=== PATIENT | female | born 1955 | race Caucasian/White ===

== ENCOUNTER 2017-08-23 07:32 | Outpatient (CLI) | payer BC | END 2017-08-23 07:33 | disposition home or self-care (01) | LOC: BICULT 07:32 | PROVIDERS: ATTEND Internal Medicine Cardiovascular Disease | DX: K76.89 Other specified diseases of liver (principal) | CPT/HCPCS: 76705 ==

== ENCOUNTER 2017-09-19 07:28 | Outpatient (CLI) | payer BC ==
[2017-09-19] MEDS ORDERED: ISOVUE-370 76%-LOCM 1 ML ONE (12:50)
== END 2017-09-19 07:29 | disposition home or self-care (01) ==
LOC: BICCT 07:28
PROVIDERS: ATTEND Internal Medicine Gastroenterology
DX: R93.3 Abnormal findings on diagnostic imaging of other parts of digestive tract (principal); K76.89 Other specified diseases of liver; N20.0 Calculus of kidney
CPT/HCPCS: 74170

== ENCOUNTER 2017-12-27 14:18 | Outpatient (CLI) | payer BC | END 2017-12-27 14:19 | disposition home or self-care (01) | LOC: BICMAMMO 14:18 | PROVIDERS: ATTEND Family Medicine | DX: Z12.31 Encounter for screening mammogram for malignant neoplasm of breast (principal) | CPT/HCPCS: 77063; 77067 ==

== ENCOUNTER 2019-01-01 14:02 | Outpatient (CLI) | payer BC ==
--- NOTE | 2019-01-01 16:58 | MMO ---
Bilateral MAMMO Bilat Screen [facility]. CLINICAL HISTORY: Patient is 63 years old and is seen for screening. The patient has no family history of breast cancer. The patient has no personal history of cancer. VIEWS: The views performed were: bilateral craniocaudal with tomosynthesis and bilateral mediolateral oblique with tomosynthesis. FILMS COMPARED: The present examination has been compared to a prior imaging study performed at [facility] on 12/27/2017. This study has been interpreted with the assistance of computer-aided detection. MAMMOGRAM FINDINGS: There are scattered fibroglandular densities. There are no suspicious masses, suspicious calcifications, or new areas of architectural distortion. IMPRESSION: THERE IS NO MAMMOGRAPHIC EVIDENCE OF MALIGNANCY. A ROUTINE FOLLOW-UP MAMMOGRAM IN 1 YEAR IS RECOMMENDED. THE RESULTS OF THIS EXAM WERE SENT TO THE PATIENT. ACR BI-RADS Category 1 - Negative MAMMOGRAPHY NOTE: 1. A negative mammogram report should not delay a biopsy if a dominant of clinically suspicious mass is present. 2. Approximately 10% to 15% of breast cancers are not detected by mammography. 3. Adenosis and dense breasts may obscure an underlying neoplasm. Reported by: SHREYAS EDWARDS MD Electonically Signed: [id number]
== END 2019-01-01 14:03 | disposition home or self-care (01) ==
LOC: BICMAMMO 14:02
PROVIDERS: ATTEND Family Medicine
DX: Z12.31 Encounter for screening mammogram for malignant neoplasm of breast (principal)
CPT/HCPCS: 77063; 77067

== ENCOUNTER 2019-02-18 15:11 | Outpatient (CLI) | payer BC | END 2019-02-18 15:12 | disposition home or self-care (01) | LOC: CTENTCT 15:11 | PROVIDERS: ATTEND Otolaryngology Plastic Surgery within the Head & Neck | DX: J32.9 Chronic sinusitis, unspecified (principal) | CPT/HCPCS: 70486 ==

== ENCOUNTER 2020-01-08 09:55 | Outpatient (CLI) | payer MEDICARE ==
--- NOTE | 2020-01-08 11:04 | CT ---
EXAM: CT Abdomen W WO Con DATE: 01/08/2020 12:00 AM INDICATION: Follow-up liver mass COMPARISON: CT the abdomen with and without contrast dated September 19, 2017 FINDING: Comparison: Prior exam dated September 19, 2017 The largest cyst involving the right hepatic lobe measures 14.3 x 11.3 x 10.1 cm were previous in darrell sured 14.7 x 12.0 x 11.6 cm. This is largely stable in size when accounting for different planes of imaging. The 2 additional 8 mm cyst in the right hepatic lobe are stable. No new focal hepatic lesion is evident. The adrenal glands, pancreas, spleen and kidneys appear within normal limits. There is stable left nephrolithiasis. There is mild scattered colonic diverticula. There are mild vascular sheryl cifications seen involving the visualized vasculature. There is scattered degenerative and osteoarthritic change present. IMPRESSION: 1. Stable hepatic cysts. 2. Stable left nephrolithiasis.
[2020-01-08] MEDS ORDERED: Iopamidol-370 76% 500 ML 1 ML ONE (14:11)
== END 2020-01-08 09:56 | disposition home or self-care (01) ==
LOC: BICCT 09:55
PROVIDERS: ATTEND Family Medicine
DX: R16.0 Hepatomegaly, not elsewhere classified (principal); K80.20 Calculus of gallbladder without cholecystitis without obstruction; K76.89 Other specified diseases of liver
CPT/HCPCS: 74170; Q9967

== ENCOUNTER 2020-07-01 14:14 | Outpatient (CLI) | payer MEDICARE | END 2020-07-01 14:15 | disposition home or self-care (01) | LOC: BICMAMMO 14:14 | PROVIDERS: ATTEND Family Medicine | DX: Z12.31 Encounter for screening mammogram for malignant neoplasm of breast (principal) | CPT/HCPCS: 77063; 77067 ==

== ENCOUNTER 2021-01-17 14:03 | Outpatient (CLI) | payer MEDICARE | END 2021-01-17 14:04 | disposition home or self-care (01) | LOC: BICMAMMO 14:03 | PROVIDERS: ATTEND Family Medicine | DX: Z13.820 Encounter for screening for osteoporosis (principal); M85.89 Other specified disorders of bone density and structure, multiple sites | CPT/HCPCS: 77080 ==

== ENCOUNTER 2021-07-13 11:45 | Outpatient (CLI) | payer MEDICARE | END 2021-07-13 11:46 | disposition home or self-care (01) | LOC: BICMAMMO 11:45 | PROVIDERS: ATTEND Family Medicine | DX: Z12.31 Encounter for screening mammogram for malignant neoplasm of breast (principal) | CPT/HCPCS: 77063; 77067 ==

== ENCOUNTER 2021-08-26 08:39 | Observation (INO) | payer MEDICARE ==
[2021-08-26 09:24] LABS: #Eosinphils 0.1 thou/uL (0.0-0.7); #Lymphocytes 2.5 thou/uL (1.20-3.40); #Monocytes 0.5 thou/uL (0.11-0.59); #Neutrophils 3.3 thou/uL (1.40-6.50); %Basophils 0.4 % (0.0-1.0); %Eosinophils 1.6 % (0.0-10.0); %Lymphocytes 38.4 % (21.0-51.0); %Monocytes 7.6 % (0.0-10.0); %Neutrophils 51.9 % (42.0-75.0); Hemoglobin 14.6 g/dL (12.0-16.0); Mean Corpuscular HGB CONC 34.5 g/dL (32.0-36.0); Mean Corpuscular Hemoglobin 32.6 pg (27.0-31.0); Mean Corpuscular Volume 94.4 fL (78.0-98.0); Mean Platelet Volume 6.4 fL (7.4-10.4); Platelet Count 207 thou/uL (130-400); RBC Distribution Width 11.9 % (11.5-14.5); Red Blood Cell (RBC) Count 4.47 mill/uL (4.20-5.40); White Blood Cell (WBC) Count 6.4 thou/uL (4.8-10.8)
[2021-08-26 09:42] LABS: ALT (SGPT) 38 U/L (8-55); AST (SGOT) 30 U/L (5-34); Alkaline Phosphatase 70 U/L (40-110); Anion Gap 16 mmol/L (10-20); BUN (Urea Nitrogen) 15 mg/dL (9.8-20.1); Bilirubin, Total 0.7 mg/dL (0.2-1.2); Calc. Creatinine Clearance 0 mL/min (70-130); Calcium 8.9 mg/dL (7.8-10.44); Carbon Dioxide 24 mmol/L (23-31); Chloride 109 mmol/L (98-107); Globulin 2.4 g/dL (2.4-3.5); Glucose 126 mg/dL (80-115); Protein, Total 6.4 g/dL (5.8-8.1); Sodium 145 mmol/L (136-145)
[2021-08-26 10:10] LABS: Bilirubin Negative (Negative); Blood, Urine Negative (Negative); Clarity Clear (Clear); Glucose, Urine (Dipstick) Normal (Negative); Ketone, Urine Negative (Negative); Leukocyte Negative Leu/uL (Negative); Nitrite Negative (Negative); Protein, Urine (Dipstick) 20 mg/dL (Neg-Trace); Specific Gravity, Urine 1.021 (1.002-1.036); Urobilinogen Normal mg/dL (Less than 2)
[2021-08-26] MEDS ORDERED: Acetaminophen 325 MG TAB PO PRN (11:57)
[2021-08-26] MEDS ORDERED: Ondansetron ODT 4 MG TAB PO PRN (11:57)
[2021-08-26 12:43] LABS: Cardiac Risk 3.5 (Less than 4.5)
[2021-08-26] MEDS ORDERED: Ondansetron PF 4 MG/2 ML Vial IVP PRN (12:43)
[2021-08-26 13:32] VITALS: BMI 39.9
[2021-08-26] MEDS: Sodium Chloride 0.9% 1,000 ML IV SCH ×2 (14:45→22:42)
[2021-08-27 05:16] LABS: Anion Gap 10 mmol/L (10-20); BUN (Urea Nitrogen) 12 mg/dL (9.8-20.1); Calc. Creatinine Clearance 108 mL/min (70-130); Calcium 8.5 mg/dL (7.8-10.44); Carbon Dioxide 27 mmol/L (23-31); Chloride 107 mmol/L (98-107); Glucose 110 mg/dL (80-115); Potassium 3.9 mmol/L (3.5-5.1); Sodium 140 mmol/L (136-145)
[2021-08-27 05:20] LABS: #Basophils 0.1 thou/uL (0.0-0.2); #Eosinphils 0.1 thou/uL (0.0-0.7); #Lymphocytes 2.9 thou/uL (1.20-3.40); #Monocytes 0.7 thou/uL (0.11-0.59); %Basophils 1.1 % (0.0-1.0); %Eosinophils 1.6 % (0.0-10.0); %Lymphocytes 42.6 % (21.0-51.0); %Monocytes 10.3 % (0.0-10.0); %Neutrophils 44.5 % (42.0-75.0); Hemoglobin 12.9 g/dL (12.0-16.0); Mean Corpuscular HGB CONC 34.2 g/dL (32.0-36.0); Mean Corpuscular Hemoglobin 32.9 pg (27.0-31.0); Mean Corpuscular Volume 96.2 fL (78.0-98.0); Mean Platelet Volume 6.4 fL (7.4-10.4); Platelet Count 202 thou/uL (130-400); RBC Distribution Width 12.1 % (11.5-14.5); Red Blood Cell (RBC) Count 3.92 mill/uL (4.20-5.40); White Blood Cell (WBC) Count 6.7 thou/uL (4.8-10.8)
[2021-08-27 08:29] VITALS: TEMP 98.3
[2021-08-27 11:44] VITALS: BP 139/78
== END 2021-08-27 12:40 | disposition home or self-care (01) ==
LOC: ERS 08:39 → 2SW 11:30
PROVIDERS: ADMIT Internal Medicine; ATTEND Internal Medicine
DX: R55 Syncope and collapse (principal); I49.3 Ventricular premature depolarization; I42.9 Cardiomyopathy, unspecified; I11.0 Hypertensive heart disease with heart failure; I50.32 Chronic diastolic (congestive) heart failure; I08.3 Combined rheumatic disorders of mitral, aortic and tricuspid valves; E66.9 Obesity, unspecified; Z68.41 Body mass index [BMI] 40.0-44.9, adult; Z79.899 Other long term (current) drug therapy; Z20.822 Contact with and (suspected) exposure to COVID-19
CPT/HCPCS: 51701; 70450; 70486; 71045; 72125; 73030; 73564; 80048; 80061; 81003; 83735; 84484; 85025; 93005; 93306; 99285; U0003; U0005; 36415; 80053; 84443; G0378; J7050

== ENCOUNTER 2021-12-15 19:30 | Outpatient (CLI) | payer MEDICARE | END 2021-12-15 19:31 | disposition home or self-care (01) | LOC: SLEEPLAB 19:30 | PROVIDERS: ATTEND Family Medicine | DX: G47.33 Obstructive sleep apnea (adult) (pediatric) (principal); I10 Essential (primary) hypertension; R06.83 Snoring; G47.10 Hypersomnia, unspecified; E66.9 Obesity, unspecified; Z68.36 Body mass index [BMI] 36.0-36.9, adult | CPT/HCPCS: 95811 ==

== ENCOUNTER 2021-12-22 11:23 | Inpatient (IN) | payer MEDICARE ==
[2021-12-22 12:40] LABS: #Eosinphils 0.1 thou/uL (0.0-0.7); #Lymphocytes 2.8 thou/uL (1.20-3.40); #Monocytes 0.6 thou/uL (0.11-0.59); #Neutrophils 3.1 thou/uL (1.40-6.50); %Basophils 0.5 % (0.0-1.0); %Eosinophils 1.9 % (0.0-10.0); %Lymphocytes 41.9 % (21.0-51.0); %Monocytes 8.6 % (0.0-10.0); %Neutrophils 47.1 % (42.0-75.0); Hemoglobin 14.1 g/dL (12.0-16.0); Mean Corpuscular Hemoglobin 32.7 pg (27.0-31.0); Mean Corpuscular Volume 96.2 fL (78.0-98.0); Mean Platelet Volume 6.9 fL (7.4-10.4); Platelet Count 243 thou/uL (130-400); RBC Distribution Width 11.3 % (11.5-14.5); Red Blood Cell (RBC) Count 4.32 mill/uL (4.20-5.40); White Blood Cell (WBC) Count 6.6 thou/uL (4.8-10.8)
[2021-12-22 13:07] LABS: ALT (SGPT) 29 U/L (8-55); AST (SGOT) 21 U/L (5-34); Alkaline Phosphatase 60 U/L (40-110); Anion Gap 11 mmol/L (10-20); BUN (Urea Nitrogen) 10 mg/dL (9.8-20.1); Bilirubin, Total 0.6 mg/dL (0.2-1.2); Calc. Creatinine Clearance 0 mL/min (70-130); Calcium 9.3 mg/dL (7.8-10.44); Carbon Dioxide 26 mmol/L (23-31); Chloride 110 mmol/L (98-107); Estimated GFR 93; Globulin 2.2 g/dL (2.4-3.5); Glucose 108 mg/dL (80-115); Potassium 4.2 mmol/L (3.5-5.1); Protein, Total 6.2 g/dL (5.8-8.1); Sodium 143 mmol/L (136-145)
[2021-12-22] MEDS ORDERED: Ondansetron PF 4 MG/2 ML Vial IVP PRN (13:53)
[2021-12-22] MEDS ORDERED: Ondansetron ODT 4 MG TAB PO PRN (13:53)
[2021-12-22 14:54] LABS: Bilirubin Negative (Negative); Blood, Urine Negative (Negative); Clarity Clear (Clear); Glucose, Urine (Dipstick) Normal (Negative); Ketone, Urine Negative (Negative); Leukocyte Negative Leu/uL (Negative); Nitrite Negative (Negative); Protein, Urine (Dipstick) Negative (Neg-Trace); Specific Gravity, Urine 1.011 (1.002-1.036); Urobilinogen Normal mg/dL (Less than 2); pH, Urine 7.5 (5.0-9.0)
[2021-12-22 15:42] LABS: Magnesium 2.1 mg/dL (1.6-2.6)
[2021-12-22 16:25] LABS: SARS-CoV-2 NAA Rapid Test Not Detected (NotDetected)
[2021-12-22 17:04] VITALS: BMI 37.7
[2021-12-22] MEDS: Sodium Chloride 0.9% 1,000 ML IV SCH (17:56)
[2021-12-22] MEDS: Atorvastatin Calcium 10 MG TAB PO SCH (21:35)
[2021-12-22] MEDS: Vit A,C & E/Lutein/Minerals Tablet PO SCH (21:35)
[2021-12-23 05:02] LABS: #Eosinphils 0.1 thou/uL (0.0-0.7); #Lymphocytes 3.3 thou/uL (1.20-3.40); #Monocytes 0.7 thou/uL (0.11-0.59); #Neutrophils 2.8 thou/uL (1.40-6.50); %Basophils 0.1 % (0.0-1.0); %Eosinophils 2.1 % (0.0-10.0); %Monocytes 9.8 % (0.0-10.0); Hemoglobin 13.6 g/dL (12.0-16.0); Mean Corpuscular HGB CONC 34.1 g/dL (32.0-36.0); Mean Corpuscular Hemoglobin 32.9 pg (27.0-31.0); Mean Corpuscular Volume 96.3 fL (78.0-98.0); Mean Platelet Volume 6.9 fL (7.4-10.4); Platelet Count 210 thou/uL (130-400); RBC Distribution Width 11.4 % (11.5-14.5); Red Blood Cell (RBC) Count 4.14 mill/uL (4.20-5.40); White Blood Cell (WBC) Count 6.9 thou/uL (4.8-10.8)
[2021-12-23 05:11] LABS: Anion Gap 12 mmol/L (10-20); BUN (Urea Nitrogen) 14 mg/dL (9.8-20.1); Calc. Creatinine Clearance 98 mL/min (70-130); Calcium 8.9 mg/dL (7.8-10.44); Carbon Dioxide 25 mmol/L (23-31); Chloride 109 mmol/L (98-107); Estimated GFR 84; Glucose 105 mg/dL (80-115); Potassium 3.9 mmol/L (3.5-5.1); Sodium 142 mmol/L (136-145)
[2021-12-23] MEDS: Losartan 25 MG TAB PO SCH (08:20)
[2021-12-23] MEDS: Vit A,C & E/Lutein/Minerals Tablet PO SCH ×2 (08:21→20:59)
[2021-12-23] MEDS ORDERED: Fentanyl 100 MCG/2 ML VIAL ONE (12:00)
[2021-12-23] MEDS ORDERED: Midazolam HCl 2 mg/2 ml Vial ONE (12:00)
[2021-12-23] MEDS ORDERED: CEFAZOLIN 1 GM VIAL ONE (12:02)
[2021-12-23] MEDS ORDERED: CEFAZOLIN 2 GM VIAL ONE (12:02)
[2021-12-23] MEDS ORDERED: Gentamicin 80 MG/2 ML VIAL ONE (12:02)
[2021-12-23] MEDS ORDERED: Lidocaine 1% (PF) 30 ML VIAL ONE (12:29)
[2021-12-23] MEDS: Sodium Chloride 0.9% 1,000 ML IV SCH (16:50)
[2021-12-23] MEDS: Atorvastatin Calcium 10 MG TAB PO SCH (20:59)
[2021-12-24 04:59] LABS: #Eosinphils 0.2 thou/uL (0.0-0.7); #Lymphocytes 2.6 thou/uL (1.20-3.40); #Monocytes 0.6 thou/uL (0.11-0.59); #Neutrophils 2.9 thou/uL (1.40-6.50); %Basophils 0.3 % (0.0-1.0); %Lymphocytes 40.4 % (21.0-51.0); %Monocytes 9.9 % (0.0-10.0); %Neutrophils 46.4 % (42.0-75.0); Hemoglobin 13.2 g/dL (12.0-16.0); Mean Corpuscular HGB CONC 33.3 g/dL (32.0-36.0); Mean Corpuscular Hemoglobin 32.7 pg (27.0-31.0); Mean Platelet Volume 6.9 fL (7.4-10.4); Platelet Count 219 thou/uL (130-400); RBC Distribution Width 11.6 % (11.5-14.5); Red Blood Cell (RBC) Count 4.03 mill/uL (4.20-5.40); White Blood Cell (WBC) Count 6.3 thou/uL (4.8-10.8)
[2021-12-24 05:14] LABS: Anion Gap 11 mmol/L (10-20); BUN (Urea Nitrogen) 9 mg/dL (9.8-20.1); Calc. Creatinine Clearance 106 mL/min (70-130); Calcium 8.6 mg/dL (7.8-10.44); Carbon Dioxide 26 mmol/L (23-31); Chloride 108 mmol/L (98-107); Estimated GFR 93; Glucose 117 mg/dL (80-115); Potassium 4.1 mmol/L (3.5-5.1); Sodium 141 mmol/L (136-145)
[2021-12-24] MEDS: Sodium Chloride 0.9% 1,000 ML IV SCH (05:45)
[2021-12-24] MEDS ORDERED: Midazolam HCl 2 mg/2 ml Vial ONE (06:13)
[2021-12-24] MEDS ORDERED: Fentanyl 100 MCG/2 ML VIAL ONE (06:13)
[2021-12-24] MEDS ORDERED: CEFAZOLIN 2 GM VIAL ONE (06:14)
[2021-12-24] MEDS ORDERED: Lidocaine 1% (PF) 30 ML VIAL ONE (06:14)
[2021-12-24] MEDS ORDERED: Gentamicin 80 MG/100 ML BAG ONE (06:14)
[2021-12-24] MEDS ORDERED: CEFAZOLIN 1 GM VIAL ONE (06:14)
[2021-12-24] MEDS ORDERED: Gentamicin 80 MG/2 ML VIAL ONE (08:08)
[2021-12-24] MEDS: Losartan 25 MG TAB PO SCH (10:32)
[2021-12-24] MEDS: Vit A,C & E/Lutein/Minerals Tablet PO SCH ×2 (10:33→20:44)
[2021-12-24] MEDS: Acetaminophen 325 MG TAB PO PRN ×3 (10:38→22:37)
[2021-12-24] MEDS: Atorvastatin Calcium 10 MG TAB PO SCH (20:44)
[2021-12-25 08:09] VITALS: TEMP 98.2
[2021-12-25] MEDS: Vit A,C & E/Lutein/Minerals Tablet PO SCH (08:57)
[2021-12-25] MEDS: Losartan 25 MG TAB PO SCH (08:57)
[2021-12-25] MEDS: Acetaminophen 325 MG TAB PO PRN (08:58)
[2021-12-25 12:40] VITALS: BP 138/78
== END 2021-12-25 10:50 | disposition home or self-care (01) | DRG 243 ==
LOC: ERS 11:23 → ERHOLD 13:25 → 2SW 16:44 → OBSVTOIN 12-23 15:27
PROVIDERS: ADMIT Internal Medicine; ATTEND Internal Medicine
PROC: 0JH606Z Insertion of Pacemaker, Dual Chamber into Chest Subcutaneous Tissue and Fascia, Open Approach (ICD-10-PCS; principal; 2021-12-23)
PROC: 02H60JZ Insertion of Pacemaker Lead into Right Atrium, Open Approach (ICD-10-PCS; 2021-12-23)
PROC: 02HK0JZ Insertion of Pacemaker Lead into Right Ventricle, Open Approach (ICD-10-PCS; 2021-12-23)
PROC: 5A09357 Assistance with Respiratory Ventilation, Less than 24 Consecutive Hours, Continuous Positive Airway Pressure (ICD-10-PCS; 2021-12-23)
DX: I49.5 Sick sinus syndrome (principal); I45.2 Bifascicular block; Z20.822 Contact with and (suspected) exposure to COVID-19; I10 Essential (primary) hypertension; G47.33 Obstructive sleep apnea (adult) (pediatric); I44.0 Atrioventricular block, first degree; Z99.89 Dependence on other enabling machines and devices; Z79.899 Other long term (current) drug therapy; Z98.890 Other specified postprocedural states; E78.5 Hyperlipidemia, unspecified; I49.1 Atrial premature depolarization
CPT/HCPCS: 36415; 71045; 80048; 80053; 81003; 83735; 85025; 93005; 93798; C1785; C1898; G0378; J0690; J1580; J2001; J2250; J3010; J7050

== ENCOUNTER 2022-07-18 09:20 | Outpatient (CLI) | payer MEDICARE | END 2022-07-18 09:21 | disposition home or self-care (01) | LOC: BICMAMMO 09:20 | PROVIDERS: ATTEND Family Medicine | DX: Z12.31 Encounter for screening mammogram for malignant neoplasm of breast (principal) | CPT/HCPCS: 77063; 77067 ==

== ENCOUNTER 2023-06-01 13:22 | Outpatient (CLI) | payer MEDICARE | END 2023-06-01 13:23 | disposition home or self-care (01) | LOC: BICRAD 13:22 | PROVIDERS: ATTEND Nurse Practitioner Family | DX: M25.562 Pain in left knee (principal); M17.12 Unilateral primary osteoarthritis, left knee; M25.762 Osteophyte, left knee; M79.89 Other specified soft tissue disorders | CPT/HCPCS: 36415; 85379 ==

== ENCOUNTER 2023-07-19 11:51 | Outpatient (CLI) | payer MEDICARE | END 2023-07-19 11:52 | disposition home or self-care (01) | LOC: BICMAMMO 11:51 | PROVIDERS: ATTEND Family Medicine | DX: Z12.31 Encounter for screening mammogram for malignant neoplasm of breast (principal) | CPT/HCPCS: 77063; 77067 ==

== ENCOUNTER 2023-08-29 08:53 | Outpatient (CLI) | payer MEDICARE | END 2023-08-29 08:54 | disposition home or self-care (01) | LOC: BICMAMMO 08:53 | PROVIDERS: ATTEND Family Medicine | DX: Z13.820 Encounter for screening for osteoporosis (principal); Z78.0 Asymptomatic menopausal state; M81.0 Age-related osteoporosis without current pathological fracture; M85.851 Other specified disorders of bone density and structure, right thigh; M85.852 Other specified disorders of bone density and structure, left thigh | CPT/HCPCS: 77080 ==

== ENCOUNTER 2024-03-13 13:01 | Outpatient (CLI) | payer MEDICARE | END 2024-03-13 13:02 | disposition home or self-care (01) | LOC: BICRAD 13:01 | PROVIDERS: ATTEND Internal Medicine Cardiovascular Disease | DX: Z48.812 Encounter for surgical aftercare following surgery on the circulatory system (principal); Z95.0 Presence of cardiac pacemaker | CPT/HCPCS: 71046 ==